=== PATIENT | male | born 1995 | race Caucasian/White ===

== ENCOUNTER 2020-07-08 17:12 | Emergency (ER) | payer MEDICAID ==
[~2020-07-08] VITALS: Ht 193 cm; Wt 213.6 kg
[~2020-07-08 17:12] MED LIST: ACET-2119 PO; ALBU6.7H9 INH; ALBU8.5H8 INH; FAMO-128 PO; GUAI120015 PO; HYDR-4353 PO; IBUP-1573 PO; METH4TAB81 PO; NAPR500T6 PO; ONDA4TAB6 PO; ONDA8TAB6 PO; ROBCFL PO
[2020-07-08] MEDS ORDERED: guaiFENesin/DM 10ml UD oral syrup PO ONE (18:40)
[2020-07-08] MEDS ORDERED: benzonatate 100mg capsule PO ONE (18:40)
[2020-07-08 19:04] VITALS: BP 149/81
[2020-07-08] MEDS ORDERED: ROBCFL PO (19:15)
[2020-07-08] MEDS ORDERED: BENZ-16 PO (19:15)
[2020-07-08] MEDS ORDERED: ALBU8.5H8 INH (19:15)
== END 2020-07-08 19:36 | disposition home or self-care (01) ==
LOC: ER 17:12
DX: J02.9 Acute pharyngitis, unspecified (principal); R05 Cough; R50.9 Fever, unspecified; Z20.828 Contact with and (suspected) exposure to other viral communicable diseases; M79.10 Myalgia, unspecified site; G89.29 Other chronic pain; F17.200 Nicotine dependence, unspecified, uncomplicated; Z86.14 Personal history of Methicillin resistant Staphylococcus aureus infection; Z90.89 Acquired absence of other organs; Z98.890 Other specified postprocedural states; Z72.89 Other problems related to lifestyle; Z79.899 Other long term (current) drug therapy
CPT/HCPCS: 36415; 71045; 87635; 99284

== ENCOUNTER 2021-09-30 08:43 | Emergency (ER) | payer MEDICAID ==
[~2021-09-30] VITALS: Ht 195.6 cm; Wt 222.7 kg
[~2021-09-30 08:43] MED LIST changes: +ALBU8.5H17 INH; -ALBU8.5H8 INH
[2021-09-30 08:52] VITALS: BP 173/99
[2021-09-30] MEDS ORDERED: AMOX-422 PO (09:32)
== END 2021-09-30 09:47 | disposition home or self-care (01) ==
LOC: ER 08:43
DX: M79.644 Pain in right finger(s) (principal); G89.29 Other chronic pain; Z86.14 Personal history of Methicillin resistant Staphylococcus aureus infection; Z90.89 Acquired absence of other organs; Z98.890 Other specified postprocedural states; Z72.89 Other problems related to lifestyle; Z79.2 Long term (current) use of antibiotics; Z79.899 Other long term (current) drug therapy; W55.01XA Bitten by cat, initial encounter; Y93.89 Activity, other specified; Y92.89 Other specified places as the place of occurrence of the external cause; Y99.8 Other external cause status
CPT/HCPCS: 99283

== ENCOUNTER 2021-10-21 08:00 | Emergency (ER) | payer MEDICAID ==
[~2021-10-21] VITALS: Ht 195.6 cm; Wt 227.3 kg
[2021-10-21 08:05] VITALS: BP 162/86
[2021-10-21] MEDS ORDERED: NO HOME MEDS (08:19)
[2021-10-21] MEDS ORDERED: AMOX-580 PO (08:34)
== END 2021-10-21 08:51 | disposition home or self-care (01) ==
LOC: ER 08:00
DX: S61.031A Puncture wound without foreign body of right thumb without damage to nail, initial encounter (principal); G89.29 Other chronic pain; Z86.14 Personal history of Methicillin resistant Staphylococcus aureus infection; Z90.89 Acquired absence of other organs; Z98.890 Other specified postprocedural states; Z72.89 Other problems related to lifestyle; Z79.899 Other long term (current) drug therapy; W55.01XA Bitten by cat, initial encounter; Y93.89 Activity, other specified; Y92.89 Other specified places as the place of occurrence of the external cause; Y99.8 Other external cause status
CPT/HCPCS: 99283

== ENCOUNTER 2021-11-28 14:14 | Emergency (ER) | payer MEDICAID ==
[~2021-11-28] VITALS: Ht 195.6 cm; Wt 227.3 kg
[~2021-11-28 14:14] MED LIST changes: +NO HOME MEDS
[2021-11-28 14:47] VITALS: BP 168/88
[2021-11-28 16:06] LABS: BASOPHILS # (AUTO) 0.1 X10'3 (0-0.2); EOSINOPHILS # (AUTO) 0.2 X10'3 (0-0.9); EOSINOPHILS % (AUTO) 1.5 % (0-6); HEMATOCRIT 41.6 % (42.0-52.0); HEMOGLOBIN 13.7 g/dl (14.0-17.9); LYMPHOCYTES # (AUTO) 2.6 X10'3 (1.1-4.8); LYMPHOCYTES % (AUTO) 22.2 % (21-51); MEAN CORPUSCULAR HEMOGLOBIN 26.2 PG (27.0-31.0); MEAN CORPUSCULAR HGB CONC 32.8 g/dL (33.0-36.5); MEAN CORPUSCULAR VOLUME 79.9 FL (78-98); MONOCYTES # (AUTO) 0.8 X10'3 (0-0.9); MONOCYTES % (AUTO) 7.2 % (2-12); NEUTROPHILS # (AUTO) 7.9 X10'3 (1.8-7.7); NEUTROPHILS % (AUTO) 68.1 % (42-75); PLATELET COUNT 356 X10'3 (140-440); RED BLOOD COUNT 5.21 X10'6 (4.70-6.10); RED CELL DISTRIBUTION WIDTH 14.5 % (11.5-14.5); WHITE BLOOD COUNT 11.6 X10'3 (4.5-11.0)
[2021-11-28 16:21] LABS: ALANINE AMINOTRANSFERASE 62 U/L (12-78); ALBUMIN 3.5 G/DL (3.4-5.0); ALBUMIN/GLOBULIN RATIO 0.7 (1.1-1.5); ALKALINE PHOSPHATASE 65 IU/L (46-116); ANION GAP 10 (8-16); ASPARTATE AMINO TRANSFERASE 28 U/L (10-37); BILIRUBIN,TOTAL 0.3 MG/DL (0.1-1.0); BLOOD UREA NITROGEN 15 MG/DL (7-18); BUN/CREATININE RATIO 14.7 (5.4-32.0); CALCIUM 9.3 MG/DL (8.5-10.1); CHLORIDE 102 MMOL/L (99-107); CREATININE 1.02 MG/DL (0.60-1.10); GLUCOSE 136 MG/DL (70-104); POTASSIUM 4.4 MMOL/L (3.5-5.1); SODIUM 139 MMOL/L (135-145); TOTAL CARBON DIOXIDE 26.9 MMOL/L (24-32); TOTAL PROTEIN 8.3 G/DL (6.4-8.2); eGFR 88 ML/MIN
[2021-11-28] MEDS ORDERED: iohexol 350MG/ML 100ml bottle IV ONE (16:26)
[2021-11-28] MEDS ORDERED: normal saline 1000ML IV soln IVB ONE (16:30)
[2021-11-28 16:42] LABS: MICROCYTOSIS 1+; PLATELET ESTIMATE NORMAL; TOTAL CELLS COUNTED 100
[2021-11-28] MEDS ORDERED: ALBU8HFA PO (18:32)
== END 2021-11-28 18:42 | disposition home or self-care (01) ==
LOC: ER 14:15
DX: R06.02 Shortness of breath (principal); G89.29 Other chronic pain; Z86.14 Personal history of Methicillin resistant Staphylococcus aureus infection; Z90.49 Acquired absence of other specified parts of digestive tract; Z98.890 Other specified postprocedural states; Z79.899 Other long term (current) drug therapy
CPT/HCPCS: 36415; 71045; 71275; 80053; 84484; 85007; 85025; 85610; 93005; 96360; 96361; 99285; J7030; Q9967

== ENCOUNTER 2022-07-10 12:34 | Emergency (ER) | payer MEDICAID ==
[~2022-07-10] VITALS: Ht 195.6 cm; Wt 231.8 kg
[2022-07-10 13:00] VITALS: BP 182/93
[2022-07-10] MEDS ORDERED: ketorolac trometh inj. 60 MG/2 ML VIAL IM ONE (14:15)
== END 2022-07-10 15:55 | disposition home or self-care (01) ==
LOC: ER 12:35
DX: M25.561 Pain in right knee (principal); G89.29 Other chronic pain; E11.9 Type 2 diabetes mellitus without complications; Z98.890 Other specified postprocedural states
CPT/HCPCS: 73564; 96372; 99283; J1885

== ENCOUNTER 2024-06-13 10:18 | Emergency (ER) | payer MEDICAID ==
[~2024-06-13] VITALS: Ht 193 cm; Wt 233.1 kg
[~2024-06-13 10:18] MED LIST changes: +ALBU6.7H14 INH; -ALBU6.7H9 INH; +NAPR-1154 PO
[2024-06-13] MEDS: ketorolac trometh. 30mg/ml inj. IM ONE (12:26)
[2024-06-13] MEDS ORDERED: NAPR-56 PO (13:02)
[2024-06-13 13:37] VITALS: BP 134/80; PULSE 87; RESP 18; TEMP 98; O2SAT 99
== END 2024-06-13 13:40 | disposition home or self-care (01) ==
LOC: ER 10:18
DX: S93.692A Other sprain of left foot, initial encounter (principal); G89.29 Other chronic pain; Z79.899 Other long term (current) drug therapy; Z79.1 Long term (current) use of non-steroidal anti-inflammatories (NSAID); Z79.52 Long term (current) use of systemic steroids; Z90.49 Acquired absence of other specified parts of digestive tract; Z98.890 Other specified postprocedural states; Z72.89 Other problems related to lifestyle; X50.1XXA Overexertion from prolonged static or awkward postures, initial encounter; Y93.89 Activity, other specified; Y92.89 Other specified places as the place of occurrence of the external cause; Y99.8 Other external cause status
CPT/HCPCS: 73630; 73700; 96372; 99285; J1885; A6449

== ENCOUNTER 2025-10-26 17:30 | Emergency (ER) | payer MEDICAID ==
[~2025-10-26] VITALS: Ht 193 cm; Wt 181.8 kg
[~2025-10-26 17:30] MED LIST changes: +NAPR-1480 PO; -NAPR500T6 PO
--- NOTE | 2025-10-26 23:00 | RADIOLOGY REPORT ---
INDICATION: RT foot pain with redness and swelling. COMPARISON: None available TECHNIQUE: CT of the right foot and ankle was performed without contrast. Volume transverse images were obtained and reconstructed in multiple planes using bone and soft tissue algorithms. Radiation Dose Information: CT Dose: CTDI volume is 14 mGy. Dose-length product is 499 mGy*cm FINDINGS: No acute fracture. Normal osseous mineralization. Mild ankle osteoarthrosis. Suggested remote medial and lateral ankle ligamentous injuries. No evidence of fluid collection. Subcutaneous stranding along the dorsal midfoot and forefoot. Diffuse atrophy of intrinsic foot musculature. Unremarkable tendons. IMPRESSION: 1. No acute osseous abnormality of the right foot or ankle. 2. Soft tissue stranding along the dorsal midfoot and forefoot without evidence of fluid collection. All CT scans at this medical facility are performed using dose modulation techniques as appropriate to a performed exam including the following: Automated exposure control was utilized; adjustment of the MA and/or KV according to patient size; and use of iterative reconstruction technique.
--- NOTE | 2025-10-26 23:08 | VASCULAR REPORT ---
Right lower extremity venous duplex Clinical History: Comparison: None Technique: Duplex Doppler evaluation of the deep venous system of the right lower extremity from the common femoral vein to the popliteal vein including color Doppler and spectral/pulsed waveform analysis was performed. Findings: The common femoral vein demonstrates appropriate compressibility and waveform variability. There is compressibility/patency of the great saphenous vein at the proximal thigh. The femoral vein demonstrates appropriate compressibility and waveform variability. The deep femoral vein demonstrates appropriate compressibility and waveform variability. The popliteal vein demonstrates appropriate compressibility and waveform variability. There is normal compressibility at the tibioperoneal trunk. Impression: 1. No right femoropopliteal venous thrombosis. 2. Contralateral common femoral vein is patent.
--- NOTE | 2025-10-26 23:32 | Physician Documentation ---
History of Present Illness ~ Chief Complaint: Foot pain Stated Complaint: R FOOT PAIN Time Seen by MD: 21:08 Primary Medical Doctor: SERENA WRIGHT MEDICAL HPI Very pleasant 30-year-old male that presents to the emergency department for evaluation of right foot pain times several weeks with worsening over the last couple of days. Patient reports he has a history of plantar fasciitis and stress fracture in his left foot. Patient reports the almost 100 lb weight loss recently and he has been much more active than he previously was. Patient has a focal area of redness with erythema noted to the dorsal aspect of the right foot with significant edema and tenderness to the dorsal and plantar surface just below the below the base of the toes. Patient denies fever chills nausea vomiting diarrhea at this time. Tetanus witin 5 years: No Medication Reconciliation Allergies: Coded Allergies: No Known Allergies (Unverified , 06/13/24) Scheduled Albuterol Sulfate (Proventil Hfa), 2 PUFFS INH Q4H Albuterol Sulfate (Proair Hfa), 2 PUFFS INH Q4HPRN Albuterol Sulfate (Proventil Hfa), 2 PUFFS INH Q4H Famotidine (Pepcid), 1 TAB PO Q12H Guaifenesin (Mucinex), 1 TAB PO Q12H Guaifenesin/D-Methorphan Hb/Pe Syrup* (Robitussin CF Syrup*), 10 ML PO Q6H Hydrocodone Bit/Acetaminophen ([place] 10-325 Tablet), 1 TAB PO Q6H Methylprednisolone (Medrol Dosepak), 4 MG PO DAILY Naproxen (Naprosyn), 1 TAB PO Q12H Ondansetron Hcl (Zofran), 1 TABLET PO Q8H Scheduled PRN Acetaminophen (Tylenol), 1-2 TABLET PO QID PRN for pain Albuterol Sulfate (Proair Hfa), 2 PUFFS INH Q4HPRN PRN for wheezing Ibuprofen (Ibuprofen), 600 MG PO Q6H PRN for pain Naproxen (Naproxen), 1 TABLET PO BID PRN for pain Ondansetron Hcl (Zofran), 1 TABLET PO Q8H PRN for NAUSEA Ondansetron Hcl (Zofran), 1 TAB PO Q6H PRN for nausea/vomiting Miscellaneous Medications Home Med List (No Home Medications), (Reported) Past Medical History Past Medical History: Chronic Pain, MRSA Abscess Past Surgical History: appendectomy, orthopedic surgeries Other Past Surgical History: knee surgery Other Past Family History: diabetes Smoking Status: Never smoker Alcohol Use: Occasionally Drug Use: none Lives with: Family Lives In: Home Occupation: employed Review of Systems ROS As stated above in the HPI, otherwise all systems are reviewed and negative. Physical Exam Vital Signs: Temperature: 98.6, Source: Temporal, Heart Rate: 101, Respiratory Rate: 20, BP: 173/99, Pulse Oximetry: 98, Weight: 181.820 Oxygen Flow Rate: 0 Physical Exam VITALS: Reviewed and as above. GENERAL: Alert, no apparent distress. HEENT: Normocephalic, atraumatic, PERRL, EOMI, dry mucosa, no erythema RESPIRATORY: Lungs clear, normal breath sounds, no respiratory distress. CHEST: No accessory muscle use, no retractions CV: Regular rate, rhythm, no edema, no murmur, No: JVD GI: Soft, non-tender, bowels sounds present, no rebound, guarding, or rigidity BACK: No CVA tenderness, or swelling MUSCULOSKELETAL No deformities, edema erythema noted to the dorsal aspect of the right lower extremity, tenderness with palpation noted to the dorsal and plantar surfaces of the right lower extremity. SKIN: Warm and dry, no rash NEURO: Oriented x4, No motor or sensory deficit PSYCH: Normal mood and affect, no agitation Progress Results/Orders Results/Orders Orders - RENETTA MAY SIZE TESTER Vl Venous (10/26/25 21:28) Ct Lower Extremity (10/26/25 21:47) Completed Orders - RENETTA MAY SIZE TESTER Vl Venous (10/26/25 21:28) Ct Lower Extremity (10/26/25 21:47) Vital Signs 10/26/25 10/26/25 17:40 22:05 Temp 97.8 98.6 Pulse 103 101 Resp 15 20 B/P (MAP) 175/100 173/99 (123) Pulse Ox 99 98 O2 Flow Rate 0 Medical Decision Making Additional information obtaine: other Findings Chief Complaint: Right foot pain with worsening erythema and edema Medical Decision-Making: Diagnosis and Complexity: This is a 30-year-old male presenting with several weeks of right foot pain, now with focal erythema, significant edema, and te nderness on both dorsal and plantar surfaces just below the base of the toes. The patient has a history of plantar fasciitis and prior left foot stress fracture, with recent 100-pound weight loss and increased activity level. The differential diagnosis includes cellulitis of unknown origin, stress fracture, and plantar fasciitis exacerbation. Data Reviewed: Ultrasound was negative for deep vein thrombosis. CT imaging was negative for acute fracture; however, stress fractures may not be radiographically apparent on initial imaging and can require MRI or repeat radiography in 10-14 days for definitive diagnosis. The patient's recent significant weight loss and increased activity level are established risk factors for stress fractures. The focal area of erythema with edema and tenderness is consistent with cellulitis, though the patient denies systemic symptoms including fever, chills, nausea, vomiting, or diarrhea. Risk Assessment: The patient does not meet criteria for systemic inflammatory response syndrome (SIRS), as he is afebrile and denies systemic symptoms. This classifies the presentation as mild nonpurulent cellulitis appropriate for outpatient management. The absence of purulent drainage, penetrating trauma, or risk factors for MRSA supports empirical treatment targeting streptococcal species, the most common causative organisms in nonpurulent cellulitis. Treatment Plan: The patient will be discharged on oral antibiotics for presumed cellulitis. Appropriate first-line agents for mild nonpurulent cellulitis include cephalexin, dicloxacillin, or in cases of penicillin allergy, clindamycin. Treatment duration will be 5-10 days based on clinical response, with reassessment recommended within 24-48 hours for improvement in pain, erythema, swelling, and warmth. If symptoms are unresponsive after 24-48 hours, alternative diagnoses or resistant organisms should be considered. Adjunctive Measures: The patient is advised to elevate the affected extremity and address predisposing factors such as edema. Careful examination and treatment of interdigital toe spaces for fissuring, scaling, or maceration may reduce colonization with pathogens and prevent recurrent infection. Given the patient's history of plantar fasciitis and stress fracture, activity modificatio n is recommended to avoid exacerbating symptoms. Follow-up and Monitoring: The patient requires close follow-up within 24-48 h ours to assess treatment response. If symptoms worsen or fail to improve, consideration should be given to adjusting antibiotic coverage or pursuing alternative diagnoses. Additionally, given the negative CT but high clinical suspicion for stress fracture based on the patient's risk factors (recent significant weight loss, increased activity, history of contralateral stress fracture), repeat imaging with either radiography in 10-14 days or MRI without contrast should be considered if foot pain persists despite resolution of cellulitis. MRI is the most sensitive modality for detecting stress fractures when initial radiographs are negative. Patient Education: The patient was counseled on the importance of completing the full antibiotic course to prevent treatment failure and bacterial resistance. He was instructed to return immediately if he develops fever, worsening erythema, increased pain, systemic symptoms, or signs of deeper infection. The patient was also educated about the possibility of stress fracture given his recent activity changes and weight loss, and the need for follow-up imaging if pain persists. Disposition: Discharge home with oral antibiotics, elevation of affected extremity, activity modification, and close outpatient follow-up within 24-48 hours. General Diff Dx:Considerations: Include: Abrasion, Contusion, Fracture, Hematoma, Laceration, Malunion, Neurovascular injury, Open fracture, Sprain, Ulcer, Other Knee Diff Dx:Considerations: Include: Abrasion, Arthritis, Contusion, DJD, Fracture-femur, Fracture-fibula, Fracture-patella, Fracture-tibia, Gout, Hematoma, Laceration, Meniscus injury, Neurovascular injury, Open fracture, Rheumatoid arthritis, Septic, Sprain, Sprain-MCL, Sprain-LCL, Sprain-ACL, Sprain-PCL, Other Ankle Diff Dx:Considerations: Include: Abrasion, Arthritis, Contusion, DJD, Fracture-metatarsal, Fracture-fibula, Fracture-tarsal, Fracture-tibia, Gout, Hematoma, Laceration, Malunion, Neurovascular injury, Nonunion, Open fracture, Osteomyelitis, Rheumatoid arthritis, Sprain, Septic, Ulcer, Other Foot Diff Dx:Considerations: Include: Abrasion, Arthritis, Cellulitis, Contusion, Dislocation, DJD, Fracture-metatarsal, Fracture-phalynx, Fracture- tarsal, Gout, Hematoma, Ingrown toenail, Laceration, Malunion, Neurovascular injury, Open fracture, Paronychia, Puncture, Rheumatoid, Sprain, Septic, Subungual hematoma, Ulcer, Other Toe Diff Dx:Considerations: Include: Abrasion, Cellulitis, Contusion, Dislocation, Felon, Fracture, Hematoma, Laceration, Neurovascular injury, Open fracture, Paronychia, Subungual hematoma, Other Departure Disposition: 01 HOME / SELF CARE / HOMELESS Impression: Primary Impression: Cellulitis Additional Impression: Foot pain Condition: Stable Discharge Instructions: Cellulitis Additional Instructions: Discharge Instructions for Right Foot Pain with Presumed Cellulitis Diagnosis and Treatment Plan You are being discharged with presumed cellulitis (skin infection) of the right foot, with possible stress fracture that cannot be ruled out at this time. Your history of recent significant weight loss, increased activity, and prior stress fracture in the left foot increases your risk for stress fractures, though initial CT imaging did not show an acute fracture. Antibiotic Therapy Take doxycycline exactly as prescribed for the full course (typically 5-10 days), even if symptoms improve earlier. [3] Skipping doses or stopping early may decrease effectiveness and increase antibiotic resistance. [4] Monitor for improvement in pain, redness, swelling, and warmth within 24-48 hours. [3] If symptoms worsen or fail to improve during this timeframe, contact your primary care provider or return to the emergency department, as this may indicate resistant bacteria or an alternative diagnosis. Be aware of potential side effects: avoid excessive sun exposure and use sunscreen, as doxycycline increases photosensitivity. Watch for vaginal yeast infections in female patients or oral thrush. Contact your provider if you develop severe diarrhea, especially with blood or mucus, as this may indicate a serious intestinal infection. If you take blood thinners, your dose may need adjustment. Pain Management Use ibuprofen as needed for pain if you can tolerate it. A short course of hydrocodone ([place]) has been prescribed for severe pain; take one tablet every 4-6 hours as needed, not exceeding the prescribed daily limit. Use the lowest effective dose for the shortest duration necessary. Important safety warnings for hydrocodone: This medication carries risks of respiratory depression, sedation, addiction, and overdose. Do not drive or operate machinery while taking this medication. Watch for signs of low blood pressure (dizziness when standing). Seek immediate medical attention if you experience severe drowsiness, difficulty breathing, or confusion. The combination of hydrocodone and ibuprofen increases risk of gastrointestinal bleeding and cardiovascular events. Avoid alcohol and other sedating medications. Supportive Care Rest, ice, and elevate your right foot to reduce swelling. Avoid activities that worsen your pain, particularly prolonged standing or high-impact exercise. Given your history of plantar fasciitis, consider gentle stretching exercises, supportive footwear, and [id number] arch supports once acute symptoms improve. Skin and Wound Care Keep your foot clean and dry. Check between your toes daily for fungal infections (athlete's foot), which appear as scaling, redness, or cracking and can provide entry points for bacteria causing recurrent cellulitis. If you notice signs of fungal infection, use an kytj-rgv-klbkohn antifungal cream (such as clotrimazole or terbinafine) applied 1-2 times daily. Follow-up and When to Return Follow up with your primary care provider within 1 week as scheduled. Return to the emergency department immediately if you develop fever, chills, worsening redness or swelling, red streaks extending from the affected area, increased pain despite medication, drainage or pus, numbness or tingling, or any other concerning symptoms. If foot pain persists after cellulitis resolves, you will need additional imaging to evaluate for stress fracture. Stress fractures often do not appear on initial CT or X-ray imaging. Your provider may order repeat X-rays in 10-14 days or MRI without contrast, which is the most sensitive test for detecting stress fractures when initial imaging is negative. Referrals: NO PRIMARY CARE PROVIDER (PCP) Prescriptions Hydrocodone Bit/Acetaminophen 5/325 MG ([place] 5/325 MG) 5 Mg/325 Mg Tablet 1 TAB PO BID PRN for pain for 10 Days, #20 TAB Prov: RENETTA MAY 10/26/25 Doxycycline Hyclate (Doxycycline Hyclate) 100 Mg Capsule 1 CAP PO Q12H for 10 Days, #20 CAP Prov: RENETTA MAY 10/26/25 Education Educated: Patient Educated regarding: diagnosis, treatment, need for follow up Signature Scribe Signature: A Attestation: Scribed for Renetta May by PARHT Cox . 10/26/25 23:39 RENETTA MAY Oct 26, 2025 23:32
[2025-10-26] MEDS ORDERED: DOXY-1 PO (23:34)
[2025-10-26] MEDS ORDERED: HYDR-3965 PO (23:34)
[2025-10-27] MEDS: HYDROcodone/acetaminophen 5mg/325mg tablet PO ONE (00:03)
[2025-10-27] MEDS: DOXYCYCLINE 100MG CAPSULE PO STA (00:03)
[2025-10-27 00:11] VITALS: BP 110/70; PULSE 72; RESP 18; TEMP 98.6; O2SAT 99
== END 2025-10-27 00:12 | disposition home or self-care (01) ==
LOC: ER 17:30
DX: L03.115 Cellulitis of right lower limb (principal); G89.29 Other chronic pain; Z86.14 Personal history of Methicillin resistant Staphylococcus aureus infection; Z90.49 Acquired absence of other specified parts of digestive tract; Z79.899 Other long term (current) drug therapy; Z72.89 Other problems related to lifestyle; Z98.890 Other specified postprocedural states
CPT/HCPCS: 73700; 93971; 99284

== ENCOUNTER 2025-11-03 14:00 | Emergency (ER) | payer MEDICAID ==
[~2025-11-03] VITALS: Ht 193 cm; Wt 175.4 kg
[~2025-11-03 14:00] MED LIST changes: +DOXY-1 PO; +HYDR-3965 PO
--- NOTE | 2025-11-03 15:07 | RADIOLOGY REPORT ---
EXAM: DI FOOT, COMPLETE (3VW MIN) HISTORY: FOOT PAIN LEFT COMPARISON: DI FOOT, COMPLETE (3VW MIN) on DOS: 06/13/24 TECHNIQUE: Three views of the left foot were performed. FINDINGS: No acute fracture or dislocation are identified about the left foot. 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 There is mild osteoarthritis of the 1st MTP joint, IP joints of the toes, and ankle. Plantar calcaneal bone spur and Achilles insertion enthesophyte are incidentally noted. 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 IMPRESSION: 1. No acute fracture of the left foot. 2. Nonacute findings as detailed above.
--- NOTE | 2025-11-03 15:25 | Physician Documentation ---
History of Present Illness ~ Chief Complaint: Mechanical Fall Stated Complaint: FOOT PAIN Time Seen by MD: 14:41 Primary Medical Doctor: SERENA WRIGHT MEDICAL HPI L foot pain. Initially the injury to the left foot from a primary fall several weeks ago and injured his right foot. Has noted antalgic gait. There was no obvious bruising or swelling. Pain is to the medial mid and forefoot. Tetanus within 5 Years?: No Medication Reconciliation Allergies: Uncoded Allergies: NSAIDS ORAL (Allergy, Unknown, GASTRIC BYPASS, 11/03/25) Scheduled Albuterol Sulfate (Proventil Hfa), 2 PUFFS INH Q4H Albuterol Sulfate (Proair Hfa), 2 PUFFS INH Q4HPRN Albuterol Sulfate (Proventil Hfa), 2 PUFFS INH Q4H Doxycycline Hyclate (Doxycycline Hyclate), 1 CAP PO Q12H Famotidine (Pepcid), 1 TAB PO Q12H Guaifenesin (Mucinex), 1 TAB PO Q12H Guaifenesin/D-Methorphan Hb/Pe Syrup* (Robitussin CF Syrup*), 10 ML PO Q6H Hydrocodone Bit/Acetaminophen ([place] 10-325 Tablet), 1 TAB PO Q6H Methylprednisolone (Medrol Dosepak), 4 MG PO DAILY Naproxen (Naprosyn), 1 TAB PO Q12H Ondansetron Hcl (Zofran), 1 TABLET PO Q8H Scheduled PRN Acetaminophen (Tylenol), 1-2 TABLET PO QID PRN for pain Albuterol Sulfate (Proair Hfa), 2 PUFFS INH Q4HPRN PRN for wheezing Hydrocodone Bit/Acetaminophen 5/325 MG ([place] 5/325 MG), 1 TAB PO BID PRN for pain Ibuprofen (Ibuprofen), 600 MG PO Q6H PRN for pain Naproxen (Naproxen), 1 TABLET PO BID PRN for pain Ondansetron Hcl (Zofran), 1 TABLET PO Q8H PRN for NAUSEA Ondansetron Hcl (Zofran), 1 TAB PO Q6H PRN for nausea/vomiting Miscellaneous Medications Home Med List (No Home Medications), (Reported) Past Medical History Past Medical History: Chronic Pain, MRSA Abscess Past Surgical History: appendectomy, orthopedic surgeries Other Past Surgical History: knee surgery Other Past Family History: diabetes Alcohol Use: Occasionally Drug Use: none Lives with: Family Lives In: Home Occupation: employed Review of Systems All Other Systems at this time: Reviewed and Negative ROS See HPI Physical Exam Vital Signs: RN Vital Signs have been reviewed: Yes, Temperature: 97.2, Source: Temporal, Heart Rate: 79, Respiratory Rate: 17, BP: 172/97, Pulse Oximetry: 98, Weight: 175.450 General Appearance: alert, WD/WN, mild distress Head: no evidence of injury Face: normal Pupils/EOM/Fundus: PERRLA Neck: non-tender Respiratory: no respiratory distress Gastrointestinal: non-tender Back: normal inspection Extremities Tenderness to palpation to the medial mid foot and forefoot without deformity. Excellent cap refill. Excellent pulses. Skin: warm/dry Neurologic: oriented x4 Motor / Sensory: no motor deficit, no sensory deficit Thoughts/Hallucinations: normal thought pattern Progress Results/Orders Results/Orders Vital Signs 11/03/25 14:06 Temp 97.2 Pulse 79 Resp 17 B/P (MAP) 172/97 Pulse Ox 98 Medical Decision Making Additional information obtaine: N/A Findings Examination history consistent with left foot contusion without obvious of acute or occult fracture on x-ray. Recommend orthopedic follow up. Rice therapy. Safely discharge. Differential Dx:Considerations: Include: Fracture(s), Contusion(s) Departure Disposition: 01 HOME / SELF CARE / HOMELESS Impression: Primary Impression: Contusion of foot Qualified Codes: S90.32XA - Contusion of left foot, initial encounter Condition: Stable Discharge Instructions: Contusion Additional Instructions: Please advance your weight as tolerated and follow up with Orthopedics. NO fracture identified today on X ray. Referrals: NO PRIMARY CARE PROVIDER (PCP) Education Educated: Patient Educated regarding: diagnosis, treatment, prognosis, need for follow up Signature Scribe Signature: . Attestation: . GIORGIO JASON PAC Nov 03, 2025 15:25
[2025-11-03 16:39] VITALS: BP 129/88; PULSE 95; RESP 18; TEMP 97.2; O2SAT 100
== END 2025-11-03 15:39 | disposition home or self-care (01) ==
LOC: ER 14:01
DX: S90.32XA Contusion of left foot, initial encounter (principal); G89.29 Other chronic pain; Z90.49 Acquired absence of other specified parts of digestive tract; Z86.14 Personal history of Methicillin resistant Staphylococcus aureus infection; Z79.899 Other long term (current) drug therapy; Z72.89 Other problems related to lifestyle; Z98.890 Other specified postprocedural states; W18.39XA Other fall on same level, initial encounter; Y93.89 Activity, other specified; Y92.89 Other specified places as the place of occurrence of the external cause; Y99.8 Other external cause status
CPT/HCPCS: 73630; 99283